=== PATIENT | female | born 2000 | race Two or more races ===

== ENCOUNTER 2024-09-28 23:16 | Inpatient (IN) | payer OTHER ==
[~2024-09-28] VITALS: Ht 177.8 cm; Wt 78.9 kg
[2024-09-29] MEDS ORDERED: hydrALAZINE HCL IV 20 MG VIAL ONE ×2 (00:29→02:03)
[2024-09-29 00:36] LABS: APPEARANCE,URINE CLEAR (CLEAR); BILIRUBIN,URINE NEGATIVE (NEGATIVE); BLOOD, URINE NEGATIVE Ery/uL (NEGATIVE); KETONES,URINE NEGATIVE (NEGATIVE); LEUKOCYTE ESTERASE ,URINE NEGATIVE (NEGATIVE); NITRITE, URINE NEGATIVE (NEGATIVE); PH,URINE 7.5 (5.0-8.0); PROTEIN,URINE NEGATIVE (NEGATIVE); UGLUCOSE NEGATIVE (NEGATIVE); UROBILINOGEN,URINE 0.2 EU/dL (0.2)
[2024-09-29 00:43] LABS: CALCIUM, SERUM 9.2 mg/dL (8.5-10.1); CARBON DIOXIDE 31 mmol/L (21-32); CHLORIDE 97 mmol/L (98-107); CREATININE 0.9 mg/dL (0.6-1.3); GLUCOSE 106 mg/dL (74-106); POTASSIUM 2.5 mmol/L (3.5-5.1); SODIUM SERUM 138 mmol/L (136-145); UREA NITROGEN, BLOOD 14 mg/dL (7-18)
[2024-09-29 00:44] LABS: AMPHETAMINE, URINE NEGATIVE (NEGATIVE); BARBITURATE, URINE NEGATIVE (NEGATIVE); BENZODIAZEPINE, URINE NEGATIVE (NEGATIVE); CANNABINOID, URINE NEGATIVE (NEGATIVE); COCCAINE, URINE NEGATIVE (NEGATIVE); OPIATE, URINE NEGATIVE (NEGATIVE); PHENCYCLIDINE SCREEN,URINE NEGATIVE (NEGATIVE)
[2024-09-29 00:47] LABS: COLOR,URINE STRAW (YELLOW)
[2024-09-29 00:48] LABS: PREGNANCY TEST URINE QUAL NEGATIVE (NEGATIVE)
[2024-09-29] MEDS: IV NS 0.9% 1,000 ML IV ONE (00:52)
[2024-09-29] MEDS: hydrALAZINE HCL IV 20 MG VIAL IV ONE ×2 (00:52→02:15)
[2024-09-29 00:55] LABS: ALANINE AMINOTRANSFERASE 23 U/L (12-78); ALBUMIN 4.1 g/dL (3.4-5.0); ALCOHOL, BLOOD < 3 mg/dL (0-10); ALKALINE PHOSPHATASE 99 U/L (46-116); ASPARTATE AMINOTRANSFERASE 16 U/L (15-37); BILIRUBIN,TOTAL 0.2 mg/dL (0.2-1.0); NT-PRO BNP 63 pg/mL (0-125); TOTAL PROTEIN, SERUM 8.4 g/dL (6.4-8.2)
[2024-09-29 00:56] LABS: BASOPHILS # (AUTO) 0.1 K/uL (0.0-0.2); BASOPHILS % (AUTO) 0.7 % (0.0-2.0); EOSINOPHILS # (AUTO) 0.1 K/uL (0.0-0.7); EOSINOPHILS % (AUTO) 1.3 % (0.0-6.0); HEMATOCRIT 38 % (33-45); HEMOGLOBIN 13.2 g/dL (11.5-14.8); LYMPHOCYTES # (AUTO) 2.3 K/uL (0.8-4.8); LYMPHOCYTES % (AUTO) 26.4 % (20.0-44.0); MEAN CORPUSCULAR HEMOGLOBIN 26 PG (26.0-33.0); MEAN CORPUSCULAR HGB CONC 34 g/dl (31.0-36.0); MEAN CORPUSCULAR VOLUME 77 fL (82-100); MONOCYTES # (AUTO) 0.6 K/uL (0.1-1.30); MONOCYTES % (AUTO) 7.5 % (2.0-12.0); NEUTROPHILS # (AUTO) 5.5 K/uL (1.8-8.9); NEUTROPHILS % (AUTO) 64.1 % (43.0-81.0); PLATELET COUNT (AUTO) 393 K/uL (150-450); RED BLOOD CELL COUNT(AUTO) 4.98 MIL/uL (4.0-5.2); RED CELL DISTRIBUTION WIDTH 14.6 % (11.5-15.0); WHITE BLOOD COUNT (AUTO) 8.6 K/uL (4.3-11.0)
[2024-09-29] MEDS ORDERED: POTASSIUM CL. PREMIX PERIPHER. 50 ML ONE ×2 (00:57→02:03)
[2024-09-29] MEDS ORDERED: POTASSIUM CHLORIDE 20 MEQ TAB.PRT.SR PO ONE (00:58)
[2024-09-29] MEDS: POTASSIUM CHLORIDE 20 MEQ TAB.PRT.SR PO ONE ×4 (01:12→20:04)
[2024-09-29] MEDS: POTASSIUM CL. PREMIX PERIPHER. 50 ML IV SCH ×2 (01:24→17:38)
[2024-09-29] MEDS ORDERED: ONDANSETRON HCL/PF 4 MG/2 ML VIAL IVP PRN (03:30)
[2024-09-29] MEDS ORDERED: MAGNESIUM HYDROXIDE 30 ML UDC PO PRN (03:30)
[2024-09-29] MEDS ORDERED: hydrALAZINE HCL IV 20 MG VIAL IV PRN (03:30)
[2024-09-29] MEDS ORDERED: ACETAMINOPHEN 325 MG TABLET PO PRN (03:30)
[2024-09-29] MEDS: CLONIDINE HCL 0.1 MG TABLET PO ONE (03:39)
[2024-09-29 07:16] LABS: BASOPHILS # (AUTO) 0.1 K/uL (0.0-0.2); BASOPHILS % (AUTO) 0.9 % (0.0-2.0); EOSINOPHILS % (AUTO) 0.5 % (0.0-6.0); HEMATOCRIT 38 % (33-45); LYMPHOCYTES # (AUTO) 1.3 K/uL (0.8-4.8); LYMPHOCYTES % (AUTO) 16.5 % (20.0-44.0); MEAN CORPUSCULAR HEMOGLOBIN 27 PG (26.0-33.0); MEAN CORPUSCULAR HGB CONC 34 g/dl (31.0-36.0); MEAN CORPUSCULAR VOLUME 78 fL (82-100); MONOCYTES # (AUTO) 0.5 K/uL (0.1-1.30); NEUTROPHILS # (AUTO) 5.8 K/uL (1.8-8.9); NEUTROPHILS % (AUTO) 75.1 % (43.0-81.0); PLATELET COUNT (AUTO) 384 K/uL (150-450); RED BLOOD CELL COUNT(AUTO) 4.84 MIL/uL (4.0-5.2); RED CELL DISTRIBUTION WIDTH 14.1 % (11.5-15.0); WHITE BLOOD COUNT (AUTO) 7.7 K/uL (4.3-11.0)
[2024-09-29 07:28] LABS: MAGNESIUM 2.3 mg/dL (1.8-2.4)
[2024-09-29 08:00] VITALS: BP 124/88; TEMP 97.9; O2SAT 95
[2024-09-29] MEDS: ASPIRIN EC 81 MG TABLET.DR PO SCH (08:52)
[2024-09-29] MEDS: AMLODIPINE BESYLATE 10 MG TABLET PO SCH (08:52)
[2024-09-29] MEDS ORDERED: ACET325T53 PO (09:45)
[2024-09-29] MEDS ORDERED: PANT40TA49 PO (09:45)
[2024-09-29] MEDS ORDERED: GABA-532 PO (09:45)
[2024-09-29] MEDS ORDERED: ERGO500093 PO (09:45)
[2024-09-29] MEDS ORDERED: AMLO-213 PO (09:45)
[2024-09-29] MEDS ORDERED: LAMO25TA10 PO (09:45)
[2024-09-29] MEDS ORDERED: DIVA250T47 PO (09:45)
[2024-09-29] MEDS ORDERED: HYDR25TA4 PO (09:45)
[2024-09-29] MEDS ORDERED: CLON0.1T PO (09:45)
[2024-09-29] MEDS ORDERED: DIPH25TA62 PO (09:45)
[2024-09-29 12:00] VITALS: BP 129/90; TEMP 98.4; O2SAT 95
[2024-09-29 16:00] VITALS: BP 137/98; TEMP 97.7; O2SAT 97
[2024-09-29] MEDS ORDERED: diphenhydrAMINE HCL 25 MG CAPSULE PO PRN (16:00)
[2024-09-29] MEDS ORDERED: PANTOPRAZOLE 40 MG TABLET.DR PO PRN (16:00)
[2024-09-29] MEDS ORDERED: CLONIDINE HCL 0.1 MG TABLET PO PRN (16:00)
[2024-09-29] MEDS ORDERED: GABAPENTIN 100 MG CAPSULE PO PRN (16:00)
[2024-09-29] MEDS ORDERED: HYDROCODONE/APAP 5/325MG TABLET PO PRN (16:30)
[2024-09-29 16:57] LABS: CALCIUM, SERUM 8.9 mg/dL (8.5-10.1); CREATININE 0.9 mg/dL (0.6-1.3)
[2024-09-29 17:05] LABS: POTASSIUM 2.6 mmol/L (3.5-5.1)
[2024-09-29] MEDS: ERGOCALCIFEROL (VITAMIN D 2) 50,000 UNIT CAPSULE PO SCH (17:38)
[2024-09-29 20:00] VITALS: BP 135/99; TEMP 98.2; O2SAT 98
[2024-09-29] MEDS: DIVALPROEX SODIUM 250 MG TABLET.DR PO SCH (21:13)
[2024-09-29] MEDS: LamoTRIgine 25 MG TABLET PO SCH (21:13)
[2024-09-29 23:34] LABS: CALCIUM, SERUM 9.3 mg/dL (8.5-10.1); CREATININE 0.8 mg/dL (0.6-1.3); POTASSIUM 3.3 mmol/L (3.5-5.1)
[2024-09-30] VITALS: BP 146/97; TEMP 98.1; O2SAT 99
[2024-09-30] MEDS: POTASSIUM CHLORIDE 20 MEQ TAB.PRT.SR PO ONE (00:04)
[2024-09-30 04:00] VITALS: BP 121/76; TEMP 98.4; O2SAT 96
[2024-09-30 06:35] LABS: BASOPHILS # (AUTO) 0.1 K/uL (0.0-0.2); BASOPHILS % (AUTO) 0.9 % (0.0-2.0); EOSINOPHILS # (AUTO) 0.1 K/uL (0.0-0.7); EOSINOPHILS % (AUTO) 1.7 % (0.0-6.0); HEMATOCRIT 38 % (33-45); HEMOGLOBIN 12.4 g/dL (11.5-14.8); LYMPHOCYTES # (AUTO) 2.7 K/uL (0.8-4.8); LYMPHOCYTES % (AUTO) 39.2 % (20.0-44.0); MEAN CORPUSCULAR HEMOGLOBIN 26 PG (26.0-33.0); MEAN CORPUSCULAR HGB CONC 33 g/dl (31.0-36.0); MEAN CORPUSCULAR VOLUME 78 fL (82-100); MONOCYTES # (AUTO) 0.5 K/uL (0.1-1.30); MONOCYTES % (AUTO) 6.8 % (2.0-12.0); NEUTROPHILS # (AUTO) 3.5 K/uL (1.8-8.9); NEUTROPHILS % (AUTO) 51.4 % (43.0-81.0); PLATELET COUNT (AUTO) 368 K/uL (150-450); RED BLOOD CELL COUNT(AUTO) 4.81 MIL/uL (4.0-5.2); RED CELL DISTRIBUTION WIDTH 14.7 % (11.5-15.0); WHITE BLOOD COUNT (AUTO) 6.8 K/uL (4.3-11.0)
[2024-09-30 06:55] LABS: CALCIUM, SERUM 8.7 mg/dL (8.5-10.1); CREATININE 0.7 mg/dL (0.6-1.3); MAGNESIUM 2.3 mg/dL (1.8-2.4); PHOSPHORUS 3.6 mg/dL (2.5-4.9); POTASSIUM 3.5 mmol/L (3.5-5.1)
[2024-09-30 08:00] VITALS: BP 138/93; TEMP 97.7; O2SAT 99
[2024-09-30] MEDS ORDERED: HYDROCHLOROTHIAZIDE 25 MG TABLET PO SCH (09:00)
[2024-09-30] MEDS ORDERED: AMLODIPINE BESYLATE 10 MG TABLET PO SCH (09:00)
[2024-09-30 09:17] LABS: THYROID STIMULATING HORMONE 0.9 uIU/mL (0.358-3.74)
[2024-09-30] MEDS: VALSARTAN 80 MG TABLET PO SCH (09:34)
[2024-09-30 12:00] VITALS: BP 138/101; TEMP 97.7; O2SAT 99
== END 2024-09-30 16:10 | disposition home or self-care (01) | DRG 282 ==
LOC: ER 23:18 → TELE1 09-29 01:34
PROVIDERS: ADMIT Nurse Practitioner Acute Care; ATTEND Nurse Practitioner Acute Care
DX: I16.0 Hypertensive urgency (principal); I21.A1 Myocardial infarction type 2; F31.9 Bipolar disorder, unspecified; F29 Unspecified psychosis not due to a substance or known physiological condition; R51.9 Headache, unspecified; F43.10 Post-traumatic stress disorder, unspecified; E87.6 Hypokalemia; K21.9 Gastro-esophageal reflux disease without esophagitis; I10 Essential (primary) hypertension
CPT/HCPCS: 36415; 70450-TC; 71045-TC; 80048-TC; 80053-TC; 83735-TC; 83880; 84100-TC; 84439-TC; 84443-TC; 84484-TC; 84703-TC; 85025-TC; 87081-TC; 93307-TC; 97110-TC; 97116-TC; 97530-TC; A4223; G0378; G0480; J0360; J3480; J7030; J7050